=== PATIENT | female | born 1965 | race Caucasian/White ===

== ENCOUNTER 2016-06-08 10:43 | Outpatient (CLI) | payer MEDICARE, OTHER | END 2016-06-08 10:44 | LOC: LAB 10:43 | PROVIDERS: ATTEND Family Medicine | DX: E03.9 Hypothyroidism, unspecified (principal) | CPT/HCPCS: 36415; 84443 ==

== ENCOUNTER 2016-07-18 18:01 | Emergency (ER) | payer OTHER ==
[2016-07-18] MEDS: 0.9 % SODIUM CHLORIDE 1,000 ML IV ONE (18:45)
[2016-07-18 18:57] LABS: BASOPHILS % 0.6 (0.0-1.5); EOSINOPHILS % 0.7 % (0.0-6.8); MEAN CORPUSCULAR HEMOGLOBIN 27.7 pg (28.0-34.0); MEAN CORPUSCULAR VOLUME 85.5 fl (80.0-100.0); MONOCYTES % 5.5 % (0.0-11.0); NEUTROPHILS # 4.9 # k/uL (1.4-7.7)
[2016-07-18 19:11] LABS: eGFR (African) > 60; eGFR (Non-African) > 60
--- NOTE | 2016-07-18 19:50 | ED Physician Documentation ---
Dizziness - HISTORIAN Historian: patient, parent - HPI Stated Complaint: Dizziness Chief Complaint: Dizziness Additional Information: progressive onset dizziness past few days-has similar q yr at this time of year. does not drink mucch water - ua only 2 x today Timing: gradual onset Duration: intermittent episodes (lukasz w/movement) Severity: moderate Associated Symptoms: vestibular, hearing loss, nausea (slight) Usually: walks w/o assistance Worsened By: changing position, movement of head - ROS CONST: none EYES/ENT: none GI/: none MS/SKIN/LYMPH: none. 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) Surgeries/Procedures: other (club foot anal cancer) - SOCIAL HX Smoking History: non-smoker Alcohol Use: none - FAMILY HX Family History: none, stroke - VITAL SIGNS Vital Signs: Vital Signs Temp Pulse Resp BP Pulse Ox 97.8 F 69 18 136/70 98 07/18/16 18:24 07/18/16 18:31 07/18/16 18:24 07/18/16 18:31 07/18/16 18:24 - REVIEWED ASSESSMENTS Nursing Assessment Reviewed: Yes Vitals Reviewed: Yes <Horacio Cerda R - Last Filed: 07/18/16 19:45> - VITAL SIGNS Vital Signs: Vital Signs Temp Pulse Resp BP Pulse Ox 97.8 F 69 18 136/70 98 07/18/16 18:24 07/18/16 18:31 07/18/16 18:24 07/18/16 18:31 07/18/16 18:24 <Mark Alonzo - Last Filed: 07/18/16 19:49> - PAST HX Allergies/Adverse Reactions: Allergies Allergy/AdvReac Type Severity Reaction Status Date / Time No Known Allergies Allergy Verified 07/18/16 18:24 Progress - Results/Orders Results/Orders: tnsf care to DR ALONZO 1899-REPORT TO HIM - Progress Progress: U/A - neg 1 L NS in ER sx resolved after IVF <Horacio Cerda - Last Filed: 07/18/16 19:45> ED Results Lab/Radiology - Lab Results Lab Results: Lab Results 07/18/16 07/18/16 18:50 18:50 WBC 8.70 K/ul K/ul (4.00-12.00) RBC 4.63 M/ul M/ul (3.90-5.20) Hgb 12.8 g/dL g/dL (12.0-16.0) Hct 39.6 % % (34.5-46.5) MCV 85.5 fl fl (80.0-100.0) MCH 27.7 pg L pg (28.0-34.0) MCHC 32.4 g/dL g/dL (30.0-36.0) RDW 14.0 % % (11.3-14.3) Plt Count 229 K/mm3 K/mm3 (130-400) Neut % (Auto) 56.3 % % (39.0-79.0) Lymph % (Auto) 33.1 % % (16.0-50.0) Greenlee % (Auto) 5.5 % % (0.0-11.0) Eos % (Auto) 0.7 % % (0.0-6.8) Baso % (Auto) 0.6 (0.0-1.5) Neut # 4.9 # k/uL # k/uL (1.4-7.7) Lymph # 2.9 # k/uL # k/uL (0.6-4.0) Greenlee # 0.5 # k/uL # k/uL (0.0-0.9) Eos # 0.1 # k/uL # k/uL (0.0-0.6) Baso # 0.0 # k/uL # k/uL (0.0-0.5) Reactive Lymphs % 3.8 % % (0.0-5.0) Reactive Lymphs # 0.3 # k/uL # k/uL (0.0-0.8) Sodium 150 mmol/L H mmol/L (136-145) Potassium 4.3 mmol/L mmol/L (3.5-5.0) Chloride 112 mmol/L H mmol/L (98-110) Carbon Dioxide 32 mmol/L mmol/L (20-32) BUN 12 mg/dL mg/dL (10-26) Creatinine 0.7 mg/dL mg/dL (0.4-1.5) Estimated Creat Clear 122 Est GFR ( Amer) > 60 (60 - ) Est GFR (Non-Af Amer) > 60 (60 - ) Glucose 104 mg/dL H mg/dL (70-99) Calcium 9.4 mg/dL mg/dL (8.5-10.5) Total Bilirubin 0.4 mg/dL mg/dL (0.2-1.2) AST 40 U/L U/L (0-41) ALT 64 U/L H U/L (0-45) Alkaline Phosphatase 104 U/L U/L (46-116) Total Protein 6.9 g/dL g/dL (6.0-8.5) Albumin 4.5 g/dL g/dL (3.0-5.5) - Orders Orders: ED Orders Category Date Time Status Orthostatics 1T Care 07/18/16 18:[address] IV Lock 1T Care 07/18/16 18:38 Active CBC/PLATELET/DIFF Routine Lab 07/18/16 18:50 Completed CMP Routine Lab 07/18/16 18:50 Completed URINALYSIS Routine Lab 07/18/16 Ordered 0.9 % Sodium Chloride [Normal Saline] 1,000 ml Med 07/18/16 18:38 Active IV Q1H <Horacio Cerda - Last Filed: 07/18/16 19:45> - Lab Results Lab Results: Lab Results 07/18/16 07/18/16 18:50 18:50 WBC 8.70 K/ul K/ul (4.00-12.00) RBC 4.63 M/ul M/ul (3.90-5.20) Hgb 12.8 g/dL g/dL (12.0-16.0) Hct 39.6 % % (34.5-46.5) MCV 85.5 fl fl (80.0-100.0) MCH 27.7 pg L pg (28.0-34.0) MCHC 32.4 g/dL g/dL (30.0-36.0) RDW 14.0 % % (11.3-14.3) Plt Count 229 K/mm3 K/mm3 (130-400) Neut % (Auto) 56.3 % % (39.0-79.0) Lymph % (Auto) 33.1 % % (16.0-50.0) Greenlee % (Auto) 5.5 % % (0.0-11.0) Eos % (Auto) 0.7 % % (0.0-6.8) Baso % (Auto) 0.6 (0.0-1.5) Neut # 4.9 # k/uL # k/uL (1.4-7.7) Lymph # 2.9 # k/uL # k/uL (0.6-4.0) Greenlee # 0.5 # k/uL # k/uL (0.0-0.9) Eos # 0.1 # k/uL # k/uL (0.0-0.6) Baso # 0.0 # k/uL # k/uL (0.0-0.5) Reactive Lymphs % 3.8 % % (0.0-5.0) Reactive Lymphs # 0.3 # k/uL # k/uL (0.0-0.8) Sodium 150 mmol/L H mmol/L (136-145) Potassium 4.3 mmol/L mmol/L (3.5-5.0) Chloride 112 mmol/L H mmol/L (98-110) Carbon Dioxide 32 mmol/L mmol/L (20-32) BUN 12 mg/dL mg/dL (10-26) Creatinine 0.7 mg/dL mg/dL (0.4-1.5) Estimated Creat Clear 122 Est GFR ( Amer) > 60 (60 - ) Est GFR (Non-Af Amer) > 60 (60 - ) Glucose 104 mg/dL H mg/dL (70-99) Calcium 9.4 mg/dL mg/dL (8.5-10.5) Total Bilirubin 0.4 mg/dL mg/dL (0.2-1.2) AST 40 U/L U/L (0-41) ALT 64 U/L H U/L (0-45) Alkaline Phosphatase 104 U/L U/L (46-116) Total Protein 6.9 g/dL g/dL (6.0-8.5) Albumin 4.5 g/dL g/dL (3.0-5.5) - Orders Orders: ED Orders Category Date Time Status Orthostatics 1T Care 07/18/16 18:[address] IV Lock 1T Care 07/18/16 18:38 Active CBC/PLATELET/DIFF Routine Lab 07/18/16 18:50 Completed CMP Routine Lab 07/18/16 18:50 Completed URINALYSIS Routine Lab 07/18/16 Ordered 0.9 % Sodium Chloride [Normal Saline] 1,000 ml Med 07/18/16 18:38 Discontinued IV Q1H <Mark Alonzo - Last Filed: 07/18/16 19:49> Dizziness Physical Exam - Physical Exam General Appearance: mild distress EENT: eye inspection normal, ENT inspection normal Neck: normal inspection. No: lymphadenopathy Respiratory: no respiratory distress, breath sounds nml CVS: reg rate & rhythm, heart sounds normal, equal pulses Abdomen: soft, non-tender Skin: warm/dry, normal color. No: cyanosis, diaphoresis, jaundice, mottled Neuro: nml orientation, nml speech, nml cognition, mood/affect nml Extremities: non-tender, normal range of motion, no evidence of injury Sensorimotor: motor nml, sensation nml <Horacio Cerda - Last Filed: 07/18/16 19:45> Discharge Decision to Admit: NO Decision Time: 19:47 <Horacio Cerda - Last Filed: 07/18/16 19:45> <Mark Alonzo - Last Filed: 07/18/16 19:49> Clincal Impression: dizziness/dehydration Referrals: Shannon Hood MD [Primary Care Provider] - Condition: Good Disposition: 01 HOME, SELF-CARE
[2016-07-18 20:04] VITALS: BP 117/55
[2016-07-19 05:42] LABS: APPEARANCE,URINE CLEAR (CLEAR); COLOR,URINE YELLOW (YELLOW); OCCULT BLOOD,URINE NEGATIVE (NEGATIVE); PH URINE 6.5 (5.0 - 8.0); UROBILINOGEN URINE 0.2 Eu (0.2-1.0)
== END 2016-07-18 19:55 | disposition home or self-care (01) ==
LOC: ED 18:01
DX: R42 Dizziness and giddiness (principal); E86.0 Dehydration
CPT/HCPCS: 80053; 81002; 85025; J7030; 96360; 99283; S1016

== ENCOUNTER 2017-02-15 14:26 | Emergency (ER) | payer OTHER ==
--- NOTE | 2017-02-15 15:13 | ED Physician Documentation ---
Upper Respiratory Symptoms - HISTORIAN Historian: patient - HPI Chief Complaint: Cough/ Upper Respiratory Additional Information: Patient described have an applied a history of increasing cough bodyaches fever associated with some mild children mild clear nasal drainage. Patient is not been around anyone of had the flu that she is aware. Patient is not have a flu shot this year. Patient appetite has been diminished but she still urinating fine. Patient denies any sore throat. Patient does have a mild headache. Onset: days ago (5 days) Context: denies: recent foreign travel Severity: mild Associated Symptoms: fever (101), chills, runny nose (clear), productive cough ( clear to white), shortness of breath, other (achy all over. ). denies: sore throat, bloody cough - ROS CONST/EYES: denies: weakness CVS/RESP: chest pain, shortness of breath (mild). denies: palpitations LYMPH: denies: leg swelling GI/: denies: abdominal pain, problems urinating, vomiting, nausea, diarrhea, black stools MS/SKIN: joint pain, muscle aches - PAST HX Lung Disease: other (hypothyroidism, GERDs,constiption) PE Risk Factors: none Surgeries/Procedures: other (rectal cancer) Allergies/Adverse Reactions: Allergies Allergy/AdvReac Type Severity Reaction Status Date / Time No Known Allergies Allergy Verified 07/18/16 18:24 Home Medications: Ambulatory Orders Medication Instructions Recorded Oseltamivir Phosphate [Tamiflu] 75 mg PO BID #10 capsule 02/15/17 Oseltamivir Phosphate [Tamiflu] 75 mg PO BID #10 capsule 02/15/17 - SOCIAL HX Smoking History: non-smoker Alcohol Use: none Drug Use: none - FAMILY HX Family History: other (maternal grandmother cancer, mother seizure, CVA) - VITAL SIGNS Vital Signs: Vital Signs Temp Pulse Resp BP Pulse Ox 102.9 F H 106 H 20 128/66 96 02/15/17 17:05 02/15/17 17:05 02/15/17 17:05 02/15/17 14:27 02/15/17 17:05 - REVIEWED ASSESSMENTS Nursing Assessment Reviewed: Yes Vitals Reviewed: Yes ED Results Lab/Radiology - Orders Orders: ED Orders Category Date Time Status CHEST P.A.&LAT 2 VIEWS [RAD] Routine Exams 02/15/17 Completed INFLUENZA A&B Routine Lab 02/15/17 15:19 Ordered Acetaminophen [Tylenol] Med 02/15/17 16:28 Discontinued 650 mg .ROUTE .STK-MED ONE Acetaminophen [Tylenol] Med 02/15/17 16:29 Discontinued 650 mg PO NOW ONE Upper Respiratory Symptoms - EXAM General Appearance: alert, mild distress EENT: eyes nml inspection, nml ENT inspection Neck: normal inspection, thyroid normal, supple. No: lymphadenopathy, stiff neck Respiratory: no resp. distress, breath sounds nml, no pain on inspiration, speaks full sentences. No: wheezes, rales, rhonchi Abdomen: non-tender, no organomegaly CVS: reg rate & rhythm, heart sounds normal, equal pulses, no gallop Skin: color nml, no rash, warm,dry Extremities: non-tender Neuro/Psych: oriented x3, mood/affect nml Discharge Clincal Impression: Influenza A Prescriptions: Oseltamivir Phosphate [Tamiflu] 75 mg PO BID #10 capsule Oseltamivir Phosphate [Tamiflu] 75 mg PO BID #10 capsule Referrals: Shannon Hood MD [Primary Care Provider] - 2 Days Additional Instructions: Take Tamiflu as directed for the next 5 days. Drink a lot of fluids. If you start to have breathing problems to see your primary care provider or return to the ED. Take mucinex to help with your congestion. Condition: Stable Disposition: 01 HOME, SELF-CARE Decision to Admit: NO Date of Decison to Admit: 02/15/17 Decision Time: 16:34
[2017-02-15 15:42] VITALS: BP 128/66
--- NOTE | 2017-02-15 16:16 | Diagnostic Imaging Report ---
KENNETH GONZALES [facility] [address] [facility] [address] [address] Report Submission Date: Feb 15, 2017 3:51:37 PM MERCHANDISE COLLECTOR Patient Study Name: ITZEL MAJOR Date: Feb 15, 2017 3:35:18 PM MERCHANDISE COLLECTOR Modality Type: CR Gender: F Description: CHEST : 63 Institution: [facility] Physician: KENNETH GONZALES Examination: PA and lateral chest. History: Evaluate lung wang. Comparison exam: None provided. Findings: PA lateral chest demonstrate a prominent cardiac and mediastinal silhouette. Diffuse parenchymal infiltrates. No blunting of the costophrenic margins. Osseous structures are appropriate for age. Impression: Diffuse bilateral parenchymal hazy infiltrates, no gross effusion - infectious versus increased volume status. Correlate clinically. Electronically signed on Feb 15, 2017 3:51:37 PM MERCHANDISE COLLECTOR by: Serg MOSER
[2017-02-15] MEDS: ACETAMINOPHEN 325 MG TABLET ONE (16:34)
[2017-02-15] MEDS: ACETAMINOPHEN 325 MG TABLET PO ONE (16:35)
== END 2017-02-15 17:05 | disposition home or self-care (01) ==
LOC: ED 14:26
DX: J10.89 Influenza due to other identified influenza virus with other manifestations (principal)
CPT/HCPCS: 71020; 87400; 99283

== ENCOUNTER 2017-08-22 16:27 | Emergency (ER) | payer OTHER ==
[2017-08-22 16:45] VITALS: BP 126/57
--- NOTE | 2017-08-22 17:11 | ED Physician Documentation ---
General Adult - HISTORIAN Historian: patient - HPI Stated Complaint: bug bite Chief Complaint: General Adult Additional Information: Noticed pink spot on finger yesterday. The area itches and stings. Had coffee with friends this morning who told her she might lose the finger. Has applied band aid, but no other treatment. No other associated signs. - ROS CONST: no problems - PAST HX Past History: none Allergies/Adverse Reactions: Allergies Allergy/AdvReac Type Severity Reaction Status Date / Time No Known Allergies Allergy Verified 08/22/17 16:40 - SOCIAL HX Smoking History: non-smoker - FAMILY HX Family History: No - VITAL SIGNS Vital Signs: Vital Signs Temp Pulse Resp BP Pulse Ox 98.1 F 67 18 126/57 97 08/22/17 16:42 08/22/17 16:42 08/22/17 16:42 08/22/17 16:42 08/22/17 16:42 - REVIEWED ASSESSMENTS Nursing Assessment Reviewed: Yes Vitals Reviewed: Yes General Adult Physical Exam - PHYSICAL EXAM GENERAL APPEARANCE: no distress EENT: eye inspection normal, ENT inspection normal NECK: normal inspection RESPIRATORY: no resp distress BACK: other (movements w/o pain) SKIN: warm/dry, normal color, other (1 cm diameter pink area, raised 2-3 mm centrally. Dorsal surface middle phalanx 3rd finger. No induration, drainage or warmth. ) EXTREMITIES: no evidence of injury NEURO: CN's nml as tested, motor nml, sensation nml, cognition normal Discharge Clincal Impression: Insect bite Referrals: Shannon Hood MD [Primary Care Provider] - 2 Days Condition: Good Disposition: 01 HOME, SELF-CARE Decision to Admit: NO Decision Time: 17:12
== END 2017-08-22 17:12 | disposition home or self-care (01) ==
LOC: ED 16:27
DX: S60.469A Insect bite (nonvenomous) of unspecified finger, initial encounter (principal); X58.XXXA Exposure to other specified factors, initial encounter; Y92.9 Unspecified place or not applicable; Y93.9 Activity, unspecified; Y99.9 Unspecified external cause status

== ENCOUNTER 2017-09-06 15:23 | Outpatient (CLI) | payer OTHER | END 2017-09-06 15:30 | LOC: LAB 15:23 | PROVIDERS: ATTEND Family Medicine | DX: E03.9 Hypothyroidism, unspecified (principal) | CPT/HCPCS: 36415; 84443 ==

== ENCOUNTER 2017-09-09 13:57 | Outpatient (CLI) | payer OTHER ==
--- NOTE | 2017-09-12 14:58 | CONSULTATION REPORT ---
REFERRING PHYSICIAN: Dr. Shannon Hood CONSULTING PHYSICIAN: Gianni Joshi MD Dear Dr. Hood: HISTORY OF PRESENT ILLNESS: Thank you for your consultation request regarding Lana Velasco. 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 She is coming in to see me because of pain in her fingers. It started in the 4th digit of her right hand. It is worse when she applies pressure to it or uses it. It radiates up the dorsum of her hand into her right elbow. It is associated with some numbness and tingling. Now she has developed some further involvement of her left 3rd finger and she thinks maybe it is swollen. She does have some back pain but no significant stiffness. These symptoms started around 2013 or earlier. In 2013, she had a hand x-ray which was felt to be unremarkable. 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 PAST MEDICAL HISTORY: 1. Anal cancer. 2. Cataracts. 3. Hypothyroidism. PAST SURGICAL HISTORY: 1. Surgery to the ears with partial deafness. 2. 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 3. Arthroscopic surgery to her right knee. 4. Anal cancer treated in [address] Trujillo. PRESENT MEDICATIONS: 1. Advil as needed. 2. Levothyroxine 75 mcg daily. 3. Omeprazole ALLERGIES: She has no known drug allergies. SOCIAL HISTORY: The patient is disabled. She does not smoke or drink. FAMILY HISTORY: Maternal grandmother had rheumatoid arthritis. The rest of her family history is not obtainable since her parents have and the patient has been adopted. REVIEW OF SYSTEMS: Her weight has been stable. She has no fatigue, weakness, or fever. She has a little dry eyes. Some loss of hearing. No mouth sores. No difficulty swallowing. No dry mouth. No chest pain, shortness of breath, cough or wheezing, nausea, vomiting, or diarrhea. No urinary symptoms. No skin rashes, hives, or photosensitivity. No color changes in the hands or feet in the cold. No fainting or dizziness. No problems with depression or swollen tender lymph nodes. PHYSICAL EXAMINATION: Vital Signs: Height: 4 feet 9 inches. Weight: 154. T: 98, R: 20, heart rate of 70, BP: 135/65. History was obtained from the patient and her adopted mother. HEENT: Sclerae are anicteric. Conjunctivae are pink. No stomatitis or glossitis. She is wearing hearing aids bilaterally, otherwise, no lesions. She has no scalp lesions. LUNGS: Clear. HEART: Regular rate and rhythm. ABDOMEN: Soft and nontender. VASCULAR: No edema or cyanosis. PERIPHERAL JOINTS: DIPs are unremarkable. Right 4th PIP is tender, as well as the right 4th MCP joint. Wrists are unremarkable. Left hand and left 3rd PIP is tender. Elbows are unremarkable. Shoulders are unremarkable. Good range of motion of the hips and knees. Ankles and feet are nontender. SKIN EXAM: She has a little lesion on her right elbow which looks more like pressure induced, otherwise, nails were unremarkable. IMPRESSION: Concern for inflammatory arthritis or polyarthritis. PLAN: 1. We will obtain x-rays of her hands. 2. Check the usual rheumatological labs including sedimentation rate and CBC. 3. I will see her back in 4 weeks. Thank you very much for the opportunity to participate in the care of your patients. Best regards, cc: Dr. Shannon MOSER
== END 2017-09-09 14:19 ==
LOC: RHEU 13:57
PROVIDERS: ATTEND Internal Medicine
DX: M79.645 Pain in left finger(s) (principal); M79.644 Pain in right finger(s); R20.2 Paresthesia of skin; F81.9 Developmental disorder of scholastic skills, unspecified
CPT/HCPCS: 99214; G0463

== ENCOUNTER 2017-09-14 15:31 | Outpatient (CLI) | payer OTHER ==
[2017-09-14 15:53] LABS: BASOPHILS % 0.6 (0.0-1.5); EOSINOPHILS % 0.5 % (0.0-6.8); MEAN CORPUSCULAR HEMOGLOBIN 27.8 pg (28.0-34.0); MEAN CORPUSCULAR VOLUME 88.2 fl (80.0-100.0); MONOCYTES % 5.2 % (0.0-11.0); NEUTROPHILS # 4.3 # k/uL (1.4-7.7)
[2017-09-14 16:39] LABS: eGFR (African) > 60; eGFR (Non-African) > 60
--- NOTE | 2017-09-14 18:41 | Diagnostic Imaging Report ---
PAU JARA [facility] [address] [facility] [address] [place], [place]. [address] Report Submission Date: Sep 14, 2017 4:34:35 PM CDT Patient Study Name: ITZEL MAJOR Date: Sep 14, 2017 3:54:18 PM CDT Modality Type: DX Gender: F Description: UPPER EXTREMITY : 63 Institution: [facility] Physician: PAU JARA Bilateral hands, 3 views each. HISTORY Juliane arthritis, pain. FINDINGS There is no acute fracture, dislocation or abnormal bone destruction. There is joint space narrowing at the right and left radiocarpal joints. There is mild joint space narrowing at the carpometacarpal joints. Metacarpal phalangeal and interphalangeal joints are normal. IMPRESSION Degenerative changes of the wrists. No abnormal bone destruction. Electronically signed on Sep 14, 2017 4:34:35 PM CDT by: Hamilton MOSER
== END 2017-09-14 15:33 ==
LOC: LAB 15:31
PROVIDERS: ATTEND Internal Medicine
DX: M13.0 Polyarthritis, unspecified (principal)
CPT/HCPCS: 36415; 80053; 85025; 85651; 86038; 86140; 86200; 86431

== ENCOUNTER 2017-10-07 12:28 | Outpatient (CLI) | payer OTHER ==
--- NOTE | 2017-10-07 16:51 | OP Clinic Progress Note ---
Dear Dr. Hood: REASON FOR VISIT: I had the pleasure of seeing your patient, Lana Velasco, on follow up. She has pain in her fingers with swelling of the 4th digit of her right hand with some numbness and tingling with it, right elbow, and right shoulder. Her left 3rd digit continues to bother her. She does have morning stiffness. She cannot really tell me how long it takes for her to feel better. PAST MEDICAL HISTORY: 1. Dilantin syndrome. 2. Anal cancer. 3. Cataracts. 4. Hypothyroidism. PAST SURGICAL HISTORY: 1. Ear surgery for partial deafness. 2. 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 3. Right knee arthroscopy. 4. Anal cancer. PRESENT MEDICATIONS: 1. Levothyroxine 75 mcg daily. 3. Omeprazole ALLERGIES: She has no known drug allergies. SOCIAL HISTORY: Unchanged. FAMILY HISTORY: Let us recall that her maternal grandmother had rheumatoid arthritis. REVIEW OF SYSTEMS: No new medical problems. No fevers, chills, sweats, chest pain, shortness of breath, cough or wheezing. She still has a little bit of dry eyes. PHYSICAL EXAMINATION: VITAL SIGNS: Height: 4 feet 9 inches. Weight: 158 pounds. T: 98.7, R: 20, heart rate 80, BP: 129/70. HEENT: Grossly unremarkable. LUNGS: Clear. HEART: Regular rate and rhythm. ABDOMEN: Soft. VASCULAR: No edema or cyanosis. PERIPHERAL JOINTS: Tenderness in right 4th PIP, as well as right 4th DIP, right 4th MCP joint, right elbow. Left hand 3rd PIP is tender. There appears to be a little bit of swelling. RADIOLOGY: I personally reviewed the x-rays of her hands. She has no erosions. No significant periarticular osteopenia or joint space narrowing. LABORATORY: Her rheumatoid factor came back positive at 15. CCP antibody was negative. Sedimentation rate, CRP, CMP, and CBC were unremarkable. IMPRESSION: Seropositive rheumatoid arthritis of multiple sites. PLAN: 1. I am instituting Plaquenil 200 mg twice a day, as well as prednisone 5 mg twice a day. 2. I will re-evaluate her in 8 weeks. At that time, I hope to taper her off of her prednisone if she has a beneficial response to Plaquenil. The patient was seen in the company of her uncle. Risks and benefits of the medications were shared with both the patient and her uncle. Thank you very much for the opportunity to participate in the care of your patients. Best regards, cc: Dr. Shannon MOSER
== END 2017-10-07 12:30 ==
LOC: RHEU 12:28
PROVIDERS: ATTEND Internal Medicine
DX: M05.89 Other rheumatoid arthritis with rheumatoid factor of multiple sites (principal)
CPT/HCPCS: 99214; G0463

== ENCOUNTER 2017-12-09 12:39 | Outpatient (CLI) | payer OTHER ==
--- NOTE | 2017-12-13 11:24 | OP Clinic Progress Note ---
Dear Dr. Hood: REASON FOR VISIT: I had the pleasure of seeing Lana Velasco in follow up for seropositive rheumatoid arthritis. She is feeling much better since I put her on prednisone 5 mg twice a day and instituted Plaquenil 200 mg twice a day. Her hands are feeling better with no swelling. No tenderness and no numbness or tingling. She also no longer has pain in the right elbow and right shoulder. She still has a little pain in her right foot. The only other new issue is that she has developed back pain and low back weakness. She was seen at [facility] and is being sent to physical therapy. PAST MEDICAL HISTORY: 1. Dilantin syndrome. 2. Anal cancer. 3. Cataracts. 4. Hypothyroidism. PAST SURGICAL HISTORY: 1. Right knee arthroscopy. 2. Lumbar spine surgery for tethered cord. 3. Ear surgery for deafness. PRESENT MEDICATIONS: 1. Levothyroxine 75 mcg daily. 2. Omeprazole. 3. Patient was given meloxicam 15 mg daily. 4. Tizanidine. ALLERGIES: She has no known drug allergies. REVIEW OF SYSTEMS: As above and otherwise no visual changes. No rashes. No chest pain, shortness of breath, cough or wheezing. She has been feeling a little dizzy if she gets up suddenly. PHYSICAL EXAMINATION: VITAL SIGNS: T: 98.3, BP: 127/60, P: 87, R: 14. Weight: 161. HEENT: Conjunctivae are pink. LUNGS: Clear. HEART: Regular rate and rhythm. ABDOMEN: Soft. VASCULAR: No edema or cyanosis. PERIPHERAL JOINTS: No synovitis at the DIPs, PIPs, MCPs, wrists, elbows, shoulders, hips, knees, ankles, and feet. IMPRESSION: Seropositive rheumatoid arthritis. PLAN: 1. Continue Plaquenil. 2. Decrease prednisone to 5 mg daily for a month and then 2.5 mg daily for a month and then try to stop it. 3. As far as her dizziness, if this persists, I have asked her to contact the office. 4. I will see her back in February. Thank you very much. cc: Dr. Shannon Hood [facility]ITAL[facility]
== END 2017-12-09 12:40 ==
LOC: RHEU 12:39
PROVIDERS: ATTEND Internal Medicine
DX: M05.9 Rheumatoid arthritis with rheumatoid factor, unspecified (principal)
CPT/HCPCS: 99214; G0463

== ENCOUNTER 2018-06-14 09:51 | Outpatient (CLI) | payer OTHER ==
--- NOTE | 2018-06-14 15:51 | Diagnostic Imaging Report ---
<p>Your browser does not support iframes.</p> MAGDALENA DELEON [facility] [address] [facility] [address] [place], [place]. [address] Report Submission Date: Jun 14, 2018 2:36:20 PM CDT Patient Study Name: ITZEL MAJOR Date: Jun 14, 2018 9:59:32 AM CDT Modality Type: DX Gender: F Description: CHEST 2VIEW : 63 Institution: [facility] Physician: MAGDALENA DELEON HISTORY: 53-year-old female with lung nodules COMPARISON: None available. TECHNIQUE: 2 views of the chest were performed. FINDINGS: The frontal view is rotated. No pneumothorax. There is mild diffuse prominence of the interstitial markings, greater centrally and in the lung bases. There may be scarring in the right lung base. The heart is enlarged. IMPRESSION: 1. Cardiomegaly and prominence of the interstitial markings suggestive of mild CHF. 2. No suspicious pulmonary nodules or masses are identified here. If the patient has a history of noncalcified pulmonary nodule per prior chest imaging, this should be followed up with noncontrast CT scan of the chest rather than chest x-ray. Electronically signed on Jun 14, 2018 2:36:20 PM CDT by: Boby MOSER
== END 2018-06-14 09:53 ==
LOC: LAB 09:51
PROVIDERS: ATTEND Family Medicine
DX: E03.9 Hypothyroidism, unspecified (principal); R05 Cough; I51.7 Cardiomegaly
CPT/HCPCS: 36415; 71046; 84443

== ENCOUNTER 2018-07-10 07:49 | Day surgery (SDC) | payer OTHER ==
[2018-07-10] MEDS ORDERED: PROPOFOL 200 MG/20 ML VIAL IV ONE (08:48)
[2018-07-10] MEDS ORDERED: LACTATED RINGERS 1,000 ML IV.SOLN IV ONE (08:48)
[2018-07-10] MEDS ORDERED: LIDOCAINE HCL 2% PF 100MG/5ML VIAL IJ ONE (08:48)
--- NOTE | 2018-09-19 08:55 | GI Report ---
DATE OF PROCEDURE: 07/10/2018 REFERRING PHYSICIAN: Dr. Hood. PROCEDURE PERFORMED: Esophageal dilatation and endoscopy. SURGEON: Reva Edgar M.D., F.Chuck.CMaurisioP. INDICATION FOR PROCEDURE: 53-year-old woman who has Dilantin syndrome. She has asthma, some deafness, history of a malignant neoplasm of the rectum. She has been observed to sometimes cough and choke on foods. She is not a really good historian. She is referred for evaluation and treatment. PROCEDURE MEDICATION: Propofol, as per Anesthesia. DESCRIPTION OF PROCEDURE: An Olympus video endoscope was passed through the esophagus under direct visualization. The patient does have a stricture and esophagitis of the GE junction. She does have a hiatal hernia. Fundus, body, antrum of the stomach: Mild gastritis. The pylorus is open. The duodenal bulb is normal. A guidewire was placed in the stomach and the endoscope was removed, then a #[id number] passed over the guidewire without difficulty. The endoscope was reintroduced. There was some bleeding where the stricture was stretched, particularly apparent stricture at the cricopharyngeus as well as a stricture at the GE junction. FINDINGS: 1. Esophageal stricture both at the GE junction and at the cricopharyngeus. 2. Hiatal hernia. 3. Esophagitis. RECOMMENDATIONS: 1. Full liquid diet today. 2. Continue on the PPI daily omeprazole before her first meal. 3. Recommend antacid at bedtime. 4. She is to follow up with Dr. Hood, and . REVA EDGAR M.D., F.A.CMaurisioP. SEBASTIAN/debbie Job#: [id number] Cc: Dr. Erwin Figueroa] [facility]
== END 2018-07-10 10:16 ==
LOC: OPSURG 07:49
PROVIDERS: ATTEND Internal Medicine Gastroenterology
DX: K22.2 Esophageal obstruction (principal); K20.9 Esophagitis, unspecified; K29.70 Gastritis, unspecified, without bleeding; K44.9 Diaphragmatic hernia without obstruction or gangrene; Q00-Q99 Congenital malformations, deformations and chromosomal abnormalities; J45.909 Unspecified asthma, uncomplicated; H91.90 Unspecified hearing loss, unspecified ear; Z85.048 Personal history of other malignant neoplasm of rectum, rectosigmoid junction, and anus
CPT/HCPCS: 43248; J2001; J2704; J7120